=== PATIENT | male | born 1985 | race Caucasian/White ===

== ENCOUNTER → 2017-05-14 | Outpatient (CLI) | payer BC ==
[~2017-05-14] MED LIST: ANTACID EXTRA300 MG PO; Ascorbic Acid,Ester- PO; CALCIUM D PO; CENTRUM ADULTS1 EACH PO; KEPPRA500 MG PO; NON-ASPIRIN PA500 M1 PO; PRILOSEC20 MG PO; Theragran PO; Toprol XL PO; VITAMIN B-12 51 EACH SL; Vicodin,Norco 5/325 PO; Vitamin B-12 PO; Vitamin D PO; celeBREX
== END | disposition home or self-care (01) ==
LOC: CDC 10:13
DX: Z01.810 Encounter for preprocedural cardiovascular examination (principal); K80.20 Calculus of gallbladder without cholecystitis without obstruction; I45.4 Nonspecific intraventricular block; I49.8 Other specified cardiac arrhythmias
CPT/HCPCS: 93000

== ENCOUNTER 2017-05-15 06:09 | Day surgery (SDC) | payer BC ==
[~2017-05-15] VITALS: Ht 180.3 cm; Wt 120.2 kg
[2017-05-15 06:51] VITALS: BP 119/60
[2017-05-15 11:45] VITALS: BP 146/70
== END 2017-05-15 11:53 | disposition home or self-care (01) ==
LOC: SDC 06:09
DX: K80.10 Calculus of gallbladder with chronic cholecystitis without obstruction (principal); I48.91 Unspecified atrial fibrillation; K21.9 Gastro-esophageal reflux disease without esophagitis; Z87.891 Personal history of nicotine dependence
CPT/HCPCS: 88304; 88307; 88313; J0131; J0330; J0690; J1100; J1170; J1644; J1885; J2250; J2405; J2710; J3010; S0020